=== PATIENT | male | born 1970 | race Caucasian/White ===

== ENCOUNTER 2016-09-21 14:22 | Emergency (ER) | payer SELFPAY ==
[2016-09-21 15:11] VITALS: BMI 25.4
[2016-09-21 16:15] VITALS: BP 165/112; PULSE 106
--- NOTE | 2016-09-21 16:38 | EDPRACDOC ---
- General Information Chief Complaint: Foot Pain Stated Complaint: NUMBNESS IN FEET FAMILY DIABETES Time Seen by Provider: 09/21/16 16:04 Information Source: Patient Home Medications: Home Medications Gabapentin 300 mg PO BID #60 capsule 09/21/16 Lisinopril/Hydrochlorothiazide [Lisinopril-Hctz 20-12.5 mg Tab] 1 tab PO DAILY # 30 tab 09/21/16 Sitagliptin Phos/Metformin HCl [Janumet 50-1,000 mg Tablet] 1 each PO BID #60 tab 09/21/16 Allergies/Adverse Reactions: Allergies Allergy/AdvReac Type Severity Reaction Status Date / Time No Known Allergies Allergy Verified 09/21/16 15:04 - History of Present Illness Onset: 4 YEARS HPI: PT PRESENTS TODAY WITH NUMBNESS TO BILATERAL FEET X 4 YEARS. PT STATES THAT DIABETES RUNS IN HIS FAMILY AND HE HAS CONCERNS ABOUT THIS. STATES FEET HAVE BECOME UNBEARABLE REGARDING THE PAIN. DENIES DIZZINESS, KAUR, CP, SHOB, ABD PAIN , N/V/D. Foot Problem Location: Reports: Bilateral Mechanism: Reports: None Circumstances: Reports: None Pain Severity: Reports: Moderate Associated Signs & Symptoms: Reports: None ED Past Medical History - History Reviewed Yes Nurses notes reviewed and agree except as marked - Patient Medical History Systemic History: Denies: Cancer - Social Medical History Smoking Status: Heavy tobacco smoker (5 or more cigarettes/day or daily pipe/ cigar) EDM Review of Systems - Review of Systems ROS Negative Except as Marked: Yes All systems reviewed and were negative except as marked Constitutional: No Symptoms Reported Respiratory: No Symptoms Reported Cardiovascular: No Symptoms Reported Gastrointestinal: No Symptoms Reported Neurological: Numbness Musculoskeletal: Foot Integumentary: No Symptoms Reported - Physical Exam Constitutional: Alert (Awake), No apparent distress Oriented to: Time, Person, Place Last recorded Vital Signs: Last Vital Signs Temp Pulse 106 09/21/16 16:12 Resp 18 09/21/16 16:12 BP 165/112 H 09/21/16 16:12 Pulse Ox 99 09/21/16 16:12 Oxygen Pulse Oxygen Saturation 99 O2 Device Room Air Oxygen Flow Rate Fraction of Inspired Oxygen ( FIO2) - HEENT Head: Normal Eye Exam: Normal Neck: Normal, Denies Pain, Midline - Respiratory/Cardiovascular Respiratory: Normal - CTA Cardiovascular: Normal - GI Palpation: Normal Tenderness: Non tender - Musculoskeletal Back: Normal Extremities: Normal - Integumentary Skin: Normal Lymphatics: Normal - Neurologic Cerebellar: Normal Mood Description: Normal Thought: Coherent Perception: Normal - Results POC Capillary Glucose 332 MG/DL (70-99) H 09/21/16 15:07 Lab Results 09/21/16 15:07 POC Capillary Glucose 332 H Decision Time to Discharge: 16:35 - Departure Disposition: Home Condition: Stable Final Diagnosis: Diabetic neuropathy Qualifiers: Diabetes mellitus type: type 2 Diabetes mellitus complication detail: diabetic polyneuropathy Qualified Code(s): E11.42 - Type 2 diabetes mellitus with diabetic polyneuropathy Diabetes Qualifiers: Diabetes mellitus type: type 2 Diabetes mellitus complication status: with neurologic complications Diabetes mellitus complication detail: with polyneuropathy Diabetes mellitus fci insulin use: without fci use Qualified Code(s): E11.42 - Type 2 diabetes mellitus with diabetic polyneuropathy Hypertension Qualifiers: Hypertension type: essential hypertension Qualified Code(s): I10 - Essential ( primary) hypertension Instructions: Managing Diabetes During Sick Days (ED), Diabetes and Exercise, Chronic Hypertension (ED), How to Check Your Blood Sugar (ED) Education/Counseling Given To: Patient Education/Counseling Given Regarding: Diagnosis, Treatment, Follow Up Referrals: None,No Provider [Primary Care Provider] - One Week [facility] [NonStaff] - One Week Fredrick Lara II, MD [Staff Physician] - One Week Austin Raymundo MD [Staff Physician] - One Week Prescriptions: Gabapentin 300 mg PO BID #60 capsule Lisinopril/Hydrochlorothiazide [Lisinopril-Hctz 20-12.5 mg Tab] 1 tab PO DAILY # 30 tab Sitagliptin Phos/Metformin HCl [Janumet 50-1,000 mg Tablet] 1 each PO BID #60 tab Forms: Patient Discharge Instructions, ED Discharge Instructions Additional Instructions: PLEASE ESTABLISH A PCP TO HELP CONTROL YOUR DIABETES AND HIGH BLOOD PRESSURE.
[2016-09-21 16:52] VITALS: TEMP 98.9
== END 2016-09-21 16:48 | disposition home or self-care (01) ==
LOC: EDMC 14:22
DX: E11.42 Type 2 diabetes mellitus with diabetic polyneuropathy (principal); I10 Essential (primary) hypertension
CPT/HCPCS: 82962; 99283

== ENCOUNTER 2016-09-22 11:29 | Emergency (ER) | payer SELFPAY ==
[2016-09-22 11:30] VITALS: BMI 25.4
[2016-09-22 11:40] VITALS: BP 151/91; PULSE 112; TEMP 97.8
--- NOTE | 2016-09-22 11:48 | EDPRACDOC ---
- General Information Stated Complaint: PAIN & SWELLING TO RT SIDE OF FACE Time Seen by Provider: 09/22/16 11:42 Home Medications: Home Medications Gabapentin 300 mg PO BID #60 capsule 09/21/16 Lisinopril/Hydrochlorothiazide [Lisinopril-Hctz 20-12.5 mg Tab] 1 tab PO DAILY # 30 tab 09/21/16 Sitagliptin Phos/Metformin HCl [Janumet 50-1,000 mg Tablet] 1 each PO BID #60 tab 09/21/16 Amoxicillin Trihydrate [Amoxicillin] 500 mg PO TID #30 tab 09/22/16 Hydrocodone Bit/Acetaminophen [Trona 5-325 Tablet] 1 each PO Q4H #10 tab Meloxicam [Mobic] 7.5 mg PO BID #20 tab 09/22/16 Allergies/Adverse Reactions: Allergies Allergy/AdvReac Type Severity Reaction Status Date / Time No Known Allergies Allergy Verified 09/22/16 11:48 - History of Present Illness Onset: TODAY HPI: PT PRESENTS TODAY WITH UPPER RIGHT TOOTH PAIN THAT BEGAN THIS MORNING. NO FEVER. PT IS DIABETIC, BUT CANNOT AFFORD HIS MEDICATIONS. Reported Tooth Problem: 8 Pain Severity: Reports: Moderate Relevant History of: Reports: Diabetes Modifying Factors: improves with: Cold, Chewing Associated Signs and Symptoms: Reports: None ED Past Medical History - History Reviewed Yes Nurses notes reviewed and agree except as marked - Patient Medical History Systemic History: Denies: Cancer - Social Medical History Smoking Status: Heavy tobacco smoker (5 or more cigarettes/day or daily pipe/ cigar) EDM Review of Systems - Review of Systems ROS Negative Except as Marked: Yes All systems reviewed and were negative except as marked Constitutional: No Symptoms Reported Eyes: No Symptoms Reported Ears: No Symptoms Reported Throat: No Symptoms Reported Nose: No Symptoms Reported Mouth: Tooth Pain Respiratory: No Symptoms Reported Cardiovascular: No Symptoms Reported Gastrointestinal: No Symptoms Reported Neurological: No Symptoms Reported Musculoskeletal: No Symptoms Reported Integumentary: No Symptoms Reported - Physical Exam Constitutional: Alert (Awake), No apparent distress Oriented to: Time, Person, Place Last recorded Vital Signs: Last Vital Signs Temp 97.8 F 09/22/16 11:35 Pulse 112 09/22/16 11:35 Resp 20 09/22/16 11:35 BP 151/91 09/22/16 11:35 Pulse Ox 98 09/22/16 11:35 Oxygen Pulse Oxygen Saturation 98 O2 Device Oxygen Flow Rate Fraction of Inspired Oxygen ( FIO2) - HEENT Head: Normal Eye Exam: Normal Oropharynx: Other (APPARENT ABSCESS TO TOOTH 8 W/OUT DISCHARGE/POINTING; VERY POOR DENTITION THROUGHOUT) Tympanic Membrane: Normal ENT EAC: Normal Nose: No Symptoms Reported Neck: Normal, Denies Pain, Midline - Respiratory/Cardiovascular Respiratory: Normal - CTA Cardiovascular: Normal - GI Palpation: Normal Tenderness: Non tender - Musculoskeletal Back: Normal Extremities: Normal - Integumentary Skin: Normal Lymphatics: Normal - Neurologic Cerebellar: Normal Mood Description: Normal Thought: Coherent Perception: Normal ED Tooth Problem Exam - HEENT Face: Swelling Teeth: Right: Incisor Upper (ABSCESS) Gingiva: Tender, Swelling, Red Palate: Normal Mouth Range of Motion: Normal Sinuses: Normal Oropharynx: Normal Neck: Normal, Denies Pain, Midline Decision Time to Discharge: 11:46 - Departure Disposition: Home Condition: Good Final Diagnosis: Dental abscess Instructions: Dental Abscess (ED) Education/Counseling Given To: Patient Education/Counseling Given Regarding: Diagnosis, Treatment, Follow Up Referrals: None,No Provider [Primary Care Provider] - One Week [facility] [NonStaff] - One Week Prescriptions: Amoxicillin Trihydrate [Amoxicillin] 500 mg PO TID #30 tab Hydrocodone Bit/Acetaminophen [Trona 5-325 Tablet] 1 each PO Q4H #10 tab Meloxicam [Mobic] 7.5 mg PO BID #20 tab Additional Instructions: [facility] [phone]
== END 2016-09-22 11:58 | disposition home or self-care (01) ==
LOC: EDMC 11:29
DX: K04.7 Periapical abscess without sinus (principal)
CPT/HCPCS: 99282